=== PATIENT | male | born 1970 | race Caucasian/White ===

== ENCOUNTER 2020-03-05 15:42 | Emergency (ER) | payer SELFPAY ==
[2020-03-05 16:04] VITALS: BMI 26.6
[2020-03-05] MEDS ORDERED: ACETAMINOPHEN 500 MG TABLET (FP) PO ONE (18:25)
--- NOTE | 2020-03-05 18:29 | PDOC ---
History of Present Illness - General Chief Complaint: Pain Stated Complaint: LFT KNEE INJURY Time Seen by Provider: 03/05/20 17:17 - History of Present Illness Initial Comments: 03/05/20 17:17 Patient is a 49-year-old male with no past medical history who presents to the ED with severe left calf pain that he has had for the last 5 days. He states he went bicycle riding on Tuesday and began to have pain in his left calf at that time. He states the pain resolved over the weekend but then started again over the last few days. He does admit to working and not being able to miss work as it is a new job and believes that may not have helped. He denies taking anything for his pain. He denies any numbness or tingling. He states he has bruising to his left ankle but no pain to his ankle. Past History - Medical History Home Medications: Ambulatory Orders NK [No Known Home Medication] 03/05/20 COPD: No - Psycho-Social/Smoking History Smoking History: Never smoked Have you smoked in the past 12 months: No Information on smoking cessation initiated: No - Substance Abuse Hx (Audit-C & DAST Scrn) How often the patient has a drink containing alcohol: Never Score: In Men: 4 or > Positive; In Women: 3 or > Positive: 0 Screen Result (Pos requires Nsg. Audit-10AR): Negative In the last yr the pt used illegal drug/Rx for NonMed reason: No Score: Yes response is considered Positive: 0 Screen Result (Positive result requires Nsg. DAST-10): Negative Review of Systems - Review of Systems Comments:: 03/05/20 18:26 - Review of Systems Able to Perform ROS?: Yes Constitutional: No: Fever, Chills, Loss of Appetite, Night Sweats, Weakness HEENTM: No: Eye Pain, Vision changes, Ear Pain, Throat Pain, Throat Swelling, Mouth Pain, Difficulty Swallowing Respiratory: No: Cough, Shortness of Breath, Wheezing, Sputum Production Cardiac (ROS): No: Chest Pain, Chest Tightness, Palpitations, Irregular Heart Beat, Edema ABD/GI: No: Nausea, Vomiting, Abdominal Pain, Diarrhea : No Dysuria, No Hematuria, No Frequency, No Urgency, No Vaginal Discharge/Pain, No Penile Discharge/Pain Musculoskeletal: No: Muscle Pain, Back Pain, Joint Pain, Muscle Weakness, Neck Pain; positive: Left calf pain Integumentary: No: Lesions, Rash Neurological: No: Headache, Numbness, Tingling, Weakness, Speech Difficulties *Physical Exam - Vital Signs Last Vital Signs Temp Pulse Resp BP Pulse Ox 97.3 F L 78 17 123/68 100 03/05/20 16:00 03/05/20 16:00 03/05/20 16:00 03/05/20 16:00 03/05/20 16:00 - Physical Exam 03/05/20 18:26 - Physical Exam General Appearance: Nourished, Appropriately Dressed, No Distress HEENT: EOMI, Normal Voice, Hearing Grossly Normal Neck: Supple, No Lymphadenopathy (R), No Lymphadenopathy (L), No Rigidity, No Decreased range of motion Respiratory/Chest: Lungs Clear, Normal Breath Sounds. No Respiratory Distress, No Accessory Muscle Use Cardiovascular: Regular Rhythm, Regular Rate, S1, S2 Gastrointestinal/Abdominal: Normal Bowel Sounds, Soft. Non-tender, No Guarding, No Rebound, No Rigidity Musculoskeletal: Normal Inspection. No Decreased Range of Motion; significant tenderness to the left calf to palpation. Calf is supple and compartments soft. EHL intact but does worsen the pain. Ecchymosis appreciated to the medial and lateral aspects of the left foot without any foot pain. DP and PT pulses palpable. No discrepancy in calf size appreciated. Extremity: Normal Capillary Refill, Normal Inspection Integumentary: Normal Color, Dry. No Rash Neurologic: official court reporter II-XII NML intact, Fully Oriented, Alert, Normal Mood/Affect, Normal Response ED Treatment Course - RADIOLOGY Radiology Studies Ordered: Category Date Time Status DUPLEX VASCUL US-1 LEG [US] Stat Ultrasound 03/05/20 17:26 Ordered Medical Decision Making - Medical Decision Making 03/05/20 18:28 Assessment: Patient is a 49-year-old male with severe left calf pain after riding his bike 5 days ago. Plan: -Duplex ultrasound ordered -Tylenol ordered -Will reassess 03/05/20 19:38 Patient's ultrasound is negative for an acute DVT. He is still having exquisite tenderness to his posterior calf but the calf is supple and the compartments are soft. Patient has sensation distally and his pulses are palpable. 03/05/20 19:48 Secondary to the patient still having significant pain we will do some lab work including a CK to rule out rhabdo. We will give him some pain medication 1 L of NS. He understands and agrees with this treatment plan. The patient is pending labs. Morphine ordered. Pt endorsed to [facility] Castellanos for further evaluation and treatment. Discharge - Discharge Information Problems reviewed: Yes Clinical Impression/Diagnosis: Pain of left calf - Follow up/Referral - Patient Discharge Instructions - Post Discharge Activity
[2020-03-05] MEDS ORDERED: SODIUM CHLORIDE 0.9% 500 ML INFUS.BAG IV ONE (19:52)
[2020-03-05] MEDS ORDERED: morphine CARPU-JECT 2 MG/1 ML DISP.SYRIN IVPUSH ONE (19:52)
[2020-03-05] MEDS ORDERED: MORPHINE SULFATE 2 MG/ML VIAL ONE (20:01)
[2020-03-05 20:27] VITALS: BP 96/59; PULSE 63; TEMP 98.4
[2020-03-05 20:48] LABS: BASO % 0.8 % (0-2.0); EOS % 1.2 % (0-4.5); HEMATOCRIT 44.6 % (35.4-49); HEMOGLOBIN 14.8 GM/dL (11.7-16.9); LYMPH % 34.7 % (8-40); MCH 29.5 pg (25.7-33.7); MCHC 33.2 g/dl (32.0-35.9); MEAN CELL VOLUME 88.6 fl (80-96); MEAN PLT VOLUME 8.8 fl (7.5-11.1); MONO % 7.5 % (3.8-10.2); NEUT % 55.8 % (42.8-82.8); RBC 5.03 M/mm3 (4.00-5.60); RDW 13.5 % (11.9-15.9); WHITE BLOOD COUNT 6.5 K/mm3 (4.0-10.0)
[2020-03-05 21:08] LABS: ALBUMIN 4.1 g/dl (3.4-5.0); BILIRUBIN,TOTAL 0.6 mg/dL (0.2-1); BLOOD UREA NITROGEN 14.2 mg/dL (7-18); CALCIUM 8.9 mg/dL (8.5-10.1); CREATININE 0.7 mg/dL (0.55-1.3); POTASSIUM 4.1 mmol/L (3.5-5.1); TOT PROT 8.1 g/dl (6.4-8.2)
--- NOTE | 2020-03-05 21:22 | PDOC ---
*Physical Exam - Vital Signs Last Vital Signs Temp Pulse Resp BP Pulse Ox 98.4 F 63 17 96/59 L 98 03/05/20 20:26 03/05/20 20:26 03/05/20 16:00 03/05/20 20:26 03/05/20 20:26 - Physical Exam 03/05/20 21:16 Gen: AAOx 3, no acute distress, comfortable, no signs of respiratory distress HENT: atraumatic, normocephalic with no laceration or contusion. Nasal mucosa without erythema. Oropharynx without erythema or exudates. Mucous membranes moist. EYES: PERRL, EOM intact, conjunctiva pink NECK: supple; trachea midline; no JVD, no lymphadenopathy, or thyromegaly CV: RRR no murmurs, gallops, or rubs. CHEST: CTA b/l no wheezing, rales or rhonchi ABD: +BS/ND. no TTP; soft, no rebound, no guarding EXTREMITY: no cyanosis or erythema. 2+ dorsalis pedis, posterior tibial, and radial pulse. L LE: calf ttp soft and supple, no signs of compartment syndrome, FROM SILT SKIN: no rash, warm and dry, no diaphoresis HEME: no purpura or ecchymosis NEURO: normal speech, CN II-XII intact, sensation intact, normal gait, no cerebellar deficits MS: 5/5 strength in all extremities, FROM intact in all extremities. ED Treatment Course - LABORATORY CBC & Chemistry Diagram: 03/05/20 20:15 03/05/20 20:15 - ADDITIONAL ORDERS Additional order review: Laboratory Results 03/05/20 20:15 Sodium 140 Potassium 4.1 Chloride 107 Carbon Dioxide 24 Anion Gap 9 BUN 14.2 Creatinine 0.7 Est GFR (CKD-EPI)AfAm 126.64 Est GFR (CKD-EPI)NonAf 109.27 Random Glucose 81 Calcium 8.9 Total Bilirubin 0.6 AST 29 ALT 38 Alkaline Phosphatase 83 Creatine Kinase 131 Total Protein 8.1 Albumin 4.1 03/05/20 20:15 RBC 5.03 MCV 88.6 MCHC 33.2 RDW 13.5 MPV 8.8 Neutrophils % 55.8 Lymphocytes % 34.7 Monocytes % 7.5 Eosinophils % 1.2 Basophils % 0.8 Medical Decision Making - Medical Decision Making 03/05/20 21:16 As per previous provider HPI which pt confirmed with me Patient is a 49-year-old male with no past medical history who presents to the ED with severe left calf pain that he has had for the last 5 days. He states he went bicycle riding on Tuesday and began to have pain in his left calf at that time. He states the pain resolved over the weekend but then started again over the last few days. He does admit to working and not being able to miss work as it is a new job and believes that may not have helped. He denies taking anything for his pain. He denies any numbness or tingling. He states he has bruising to his left ankle but no pain to his ankle. Labs and imaging WNL. Pt is safe and stable for discharge with orthopedic follow up and pain meds. Pt appears well and was given crutches as well on instructions on use RICE instructions given Pt appears well agrees with plan and is safe and stable for discharge Supportive care instructions explained and given to pt. Reasons to return emergently to ER explained and given. Importance of follow up with PMD and other specialists as indicated stressed to pt. Pt verbalized understanding of instructions. Pt to follow up with PMD in 2 days. Discharge - Discharge Information Problems reviewed: Yes Clinical Impression/Diagnosis: Pain of left calf Condition: Stable Disposition: HOME - Additional Discharge Information Prescriptions: Ibuprofen 600 mg PO TID 10 Days #30 tablet - Follow up/Referral Referrals: David Milian MD [Staff Physician] - Vinod Ochoa [Non Staff, Medical] - - Patient Discharge Instructions - Post Discharge Activity
[2020-03-05 21:31] LABS: PLATELET COUNT 69 K/MM3 (134-434)
== END 2020-03-05 22:37 | disposition home or self-care (01) ==
LOC: JER 15:42
PROC: 3E033GC Introduction of Other Therapeutic Substance into Peripheral Vein, Percutaneous Approach (ICD-10-PCS; principal; 2020-03-05)
DX: M79.662 Pain in left lower leg (principal)
CPT/HCPCS: 36415; 80053; 82550; 85025; 93971-TC; 99284-25